=== PATIENT | female | born 2000 | race Caucasian/White ===

== ENCOUNTER 2024-07-12 23:09 | Emergency (ER) | payer OTHER ==
[~2024-07-12] VITALS: Ht 165.1 cm; Wt 73.0 kg
[2024-07-12 23:34] VITALS: O2SAT 98
[2024-07-12 23:35] VITALS: BP 119/89; PULSE 104; RESP 16; TEMP 98.2; O2SAT 99
[2024-07-13] MEDS ORDERED: THROAT LOZENGES-BENZOCAINE/MENTH/CETYLPYRD CL LOZENGES MM PRN (00:30)
[2024-07-13] MEDS ORDERED: IBUP-2029 MT (00:32)
== END 2024-07-13 00:40 | disposition home or self-care (01) ==
LOC: ER 23:09
DX: S60.221A Contusion of right hand, initial encounter (principal); W22.8XXA Striking against or struck by other objects, initial encounter; Y93.89 Activity, other specified; Y92.89 Other specified places as the place of occurrence of the external cause; Y99.8 Other external cause status
CPT/HCPCS: 73130; 99283